=== PATIENT | male | born 1980 | race Caucasian/White ===

== ENCOUNTER 2023-06-11 09:17 | Emergency (ER) | payer MEDICARE, MEDICAID, SELFPAY ==
[2023-06-11] VITALS (8 sets, daily range): BP systolic 119–132; BP diastolic 65–91; PULSE 68–88; RESP 14–22; TEMP 36.7–36.8; O2SAT 94–99; BMI 49.5
--- NOTE | 2023-06-11 09:14 | ECG_ITS ---
APPROVED REPORT Exam: Resting ECG HR:78 bpm ECG Measurements Heart Rate 78 AXES LA 168 P 34 QRSd 97 QRS 33 QT 360 T 1 QTc 394 Conclusion SINUS RHYTHM NORMAL ECG UNCONFIRMED REPORT Electronically signed by : Alan Seth MD 06/12/2023 20:53:04
--- NOTE | 2023-06-11 09:30 | HMH.EDGENADL ---
Discharge Plan Disposition Patient Disposition: Home, Self-Care Prescriptions Prescriptions: New omeprazole magnesium 20 mg capsule,delayed release(DR/EC) 20 mg PO DAILY 28 Days Qty: 28 5RF Referrals Follow up/Referrals: Emile Ha MD [Staff Physician] - See instructions (needs PCP) Activity Restrictions/Add. Instructions Additional Instructions/Restrictions: Call your family doctor to establish care for this visit to the emergency department and schedule follow-up within 48 hours to ensure improvement. If you have any worsening of your condition or any other concerning signs or symptoms, return to the emergency department or your primary care doctor for further evaluation. Take Tylenol 1000 mg every 6 hours (4 times daily) and ibuprofen 400 mg every 6 hours (4 times daily) as needed with food and water to prevent GI upset and kidney damage. A referral for family doctor has been placed, you can call the information listed here to set up an appointment. Clinical Impressions Clinical Impression: Chest pain Qualifiers: Chest pain type: unspecified Qualified Code(s): R07.9 - Chest pain, unspecified Discharge ED Provider: Tay Willis General Adult HPI General Chief complaint: Chest Pain Stated complaint: chest pain Time Seen by Provider: 06/11/23 09:19 Mode of Arrival: Ambulatory Source of Information: Patient and Relative Limitations: No Limitations Description of Symptoms (Recalled from ER Triage Doc. by RN): 42 yo M presents to ED with c/o chest pain. pt reports pain ongoing for a few days. pt reports burning in middle of chest, radiating into the back. right upper arm pain associated. History of Present Illness HPI narrative: Is a 42-year-old male with history of hypertension, anxiety presenting with chest pain. Patient states that chest pain started 8/6 in the PM. Started in his epigastrium and radiates to his left shoulder. Feels like a pressure. No overt pain. Nausea without vomiting. Denies diaphoresis, shortness of breath, weakness, vision changes, left lower extremity symptoms, fevers or chills, cough, PND, orthopnea, or any other concerns. Has not taken anything for the pain. Tired to drink Gatorade, but that did not help. Tried to stay up all night thinking that would help, but it did not, so he comes to the ER for further evaluation. Related Data Previous Rx's Medication Instructions Recorded omeprazole magnesium 20 mg 20 mg PO DAILY 4 weeks #28 caps 06/11/23 capsule,delayed release Allergies Allergy/AdvReac Type Severity Reaction Status Date / Time vancomycin Allergy Verified 06/11/23 09:32 [facility] Disclaimer: The information contained in this section may have been updated after the patient was seen, as this information can be updated by other users. Social History Smoking Status: Never smoker alcohol intake: never current occupational status: unemployed Travel in the last 8 weeks: None ROS Obtained: Yes All systems reviewed & no additional complaints except as documented Physical Exam General General appearance: alert, in no apparent distress, anxious, obese and other ( ) Head Head exam: atraumatic and normocephalic Eye Eye exam: Present normal appearance, PERRL and EOMI ENT ENT exam: Present mucous membranes moist Neck Neck exam: Present normal inspection, full ROM and trachea midline Respiratory Respiratory exam: Present normal lung sounds bilaterally; Absent respiratory distress, wheezes, stridor, accessory muscle use or prolonged expiratory phase Cardiovascular Cardiovascular exam: Present regular rate and normal rhythm Abdominal Exam Abdominal exam: Present soft; Absent distention, tenderness, guarding, rebound, rigidity or normal bowel sounds Extremities Exam Extremities exam: Absent edema Neurological Exam Neurological exam: Present alert, oriented X3, CN II-XII intact and normal gait; Absent motor sensory deficit Skin Skin exam: Present warm and
[2023-06-11 09:32] LABS: Basophils # 0.1 K/mm3 (0-0.2); Basophils % 0.7 % (0.1-2.0); Eosinophils # 0.1 K/mm3 (0.0-0.4); Eosinophils % 1.1 % (0.1-12.0); Hematocrit 49.2 % (42.0-52.0); Hemoglobin 15.9 g/dL (14.1-18.0); Lymphocytes # 1.3 K/mm3 (0.7-4.5); Lymphocytes % 17.4 % (10-50); Mean Corpuscular HGB Conc 32.4 g/dL (31.8-35.4); Mean Corpuscular Hemoglobin 30.6 pg (27.0-31.2); Mean Corpuscular Volume 94.4 fl (80-94); Monocytes # 0.4 K/mm3 (0.1-1.0); Monocytes % 5.5 % (1.7-9.3); Neutrophils # 5.6 K/mm3 (1.8-7.8); Neutrophils % 75.3 % (37.0-80.0); Platelet Count 213 K/mm3 (142-424); Red Blood Count 5.21 M/mm3 (4.60-6.20); Red Cell Distribution Width 12.9 % (11.5-17.5); White Blood Count 7.5 K/mm3 (4.8-10.8)
--- NOTE | 2023-06-11 09:33 | XR_ITS ---
FINAL REPORT CLINICAL HISTORY: CP, SOA FINDINGS: SINGLE-VIEW CHEST The heart size is normal. The mediastinum is normal. The lungs are clear. There is no pneumothorax. IMPRESSION: No acute cardiopulmonary process. Reviewed, Interpreted and Dictated by Hernan Marte III, MD Transcribed by Dorothy Glaser Authenticated and [facility]
[2023-06-11 09:52] LABS: Alanine Aminotransferase 43 U/L (12-78); Albumin Level 4.5 g/dl (3.5-5.0); Albumin/Globulin Ratio 1.5 (1.1-1.8); Alkaline Phosphatase 102 U/L (38-126); Anion Gap 12.8 mEq/L (5-15); Aspartate Amino Transferase 38 U/L (17-59); Bilirubin,Total 1.1 mg/dl (0.2-1.3); Blood Urea Nitrogen 13 mg/dl (9-20); Calcium 8.6 mg/dl (8.4-10.2); Carbon Dioxide 25 mmol/L (22.0-30.0); Chloride 104 mmol/L (98-107); Creatinine Clearance Estimated 108 mL/min (50-200); Estimated Glomerular Filt Rate 92 ml/min (>60); GFR (African American) 111 ML/MIN (>60); Globulin 3.1 g/dL (1.3-3.2); Glucose 115 mg/dl (74-100); Potassium 3.8 mmoL/L (3.5-5.1); Sodium 138 mmol/L (136-145); Total Protein,Serum 7.6 g/dl (6.3-8.2)
[2023-06-11 10:08] LABS: Cholesterol 187 mg/dl (140-200); HDL Cholesterol 31 mg/dl (40-60); Lipase 261 U/L (23-300); Triglycerides 97 mg/dl (30-150); VLDL Cholesterol 19 mg/dL (0-40)
[2023-06-11 10:09] LABS: NT Pro Brain Natriuretic Pep. 25.2 pg/mL (0-125)
[2023-06-11 10:11] LABS: Hemoglobin A1C 5.2 % (4.0-6.0); Troponin I < 0.01 ng/ml (0.00-0.034)
--- NOTE | 2023-06-11 11:10 | PC.NURSE ---
rounded on pt no needs updated on status of care, aunts at bs
--- NOTE | 2023-06-11 12:58 | PC.NURSE ---
call made to lab for update on troponin results, approx 15 mins
[2023-06-11 13:16] LABS: Troponin I < 0.01 ng/ml (0.00-0.034)
== END 2023-06-11 13:37 | disposition home or self-care (01) ==
PROVIDERS: Emergency Provider Emergency Medicine
DX: R07.9 Chest pain, unspecified (principal); M79.621 Pain in right upper arm; M54.9 Dorsalgia, unspecified; I10 Essential (primary) hypertension
CPT/HCPCS: 71045; 80053; 80061; 83036; 83690; 83880; 84484; 85025; 93005; 96374; 99285

== ENCOUNTER 2024-09-10 05:16 | Emergency (ER) | payer MEDICARE, MEDICAID, SELFPAY ==
--- NOTE | 2024-09-10 05:18 | XR_ITS ---
PROCEDURE INFORMATION: Exam: XR Complete Acute Abdomen Series Including Chest Exam date and time: 09/10/2024 5:23 AM Age: 43 years old Clinical indication: Abdominal pain; Additional info: Llq abd pain constipation TECHNIQUE: Imaging protocol: Radiologic exam. Complete acute abdomen series, including 2 or more views of the abdomen and a single view chest. COMPARISON: CR XR CHEST PORTABLE 06/11/2023 9:37 AM FINDINGS: Lungs: Normal. No consolidation. Pleural spaces: Normal. No pleural effusions. No pneumothorax. Heart/Mediastinum: Normal. No cardiomegaly. Gastrointestinal tract: Paucity of small bowel gas. Oyvr-[id number] proximal colonic stool burden. Intraperitoneal space: Normal. No free air. Bones/joints: Minimal levoconvex lumbar scoliosis. Scattered degenerative change of the visualized osseous structures. Soft tissues: Normal. IMPRESSION: 1. Paucity of small bowel gas which may be secondary to enteritis. Correlate clinically. 2. No definitive evidence of intestinal obstruction on this examination. 3. Residual findings as above.
[2024-09-10 05:21] VITALS: BP 145/80; PULSE 61; RESP 20; TEMP 37.1; O2SAT 98; BMI 47.3
--- NOTE | 2024-09-10 05:27 | ED_ITS ---
Discharge Plan Disposition Patient Disposition: Home, Self-Care Condition: Good Prescriptions Prescriptions: New polyethylene glycol 3350 [Miralax] 17 gram/dose powder 17 g PO DAILY 4 Days Qty: 68 0RF No Action phentermine [Adipex-P] 37.5 mg tablet 37.5 mg PO DAILY Qty: 30 3RF Rx Instructions: must administer 30 minutes before or 1-2 hours after breakfast omeprazole magnesium 20 mg capsule,delayed release(DR/EC) 20 mg PO DAILY 28 Days Qty: 28 5RF topiramate [Topamax] 25 mg tablet 25 mg PO DAILY Qty: 30 0RF Referrals Follow up/Referrals: Konrad Murphy MD [Staff Physician] - See instructions (trace hematuria in ER, pt reports 4 years of stable scrotal swelling) Activity Restrictions/Add. Instructions Additional Instructions/Restrictions: You were evaluated in the ER and are appropriate for discharge at this time. Take Tylenol, ibuprofen if needed for pain. Take the prescribed MiraLAX if needed for constipation. Stop taking this medication if you get diarrhea. Make an appointment with your primary care doctor for reevaluation in a few days. Also follow-up with urology for the very small amount of blood that was in your urine. You have been referred to Dr. Murphy for this reason. Return to the ER with new, worsening, or otherwise concerning symptoms Clinical Impressions Clinical Impression: Abdominal pain, left lower quadrant, Hematuria Instructions Patient Instructions: DI for Acute Abdominal Pain Print Language Print Language: Divehi Discharge ED Provider: Efren Armstrong General Adult HPI General Chief complaint: Abdominal Pain Stated complaint: left lower abdominal pain, into groin area Time Seen by Provider: 09/10/24 05:17 History of Present Illness HPI narrative: 43-year-old male presents to the ER for complaints of left lower quadrant abdominal pain. Patient reports the last 2 to 3 hours he has had cramping left lower quadrant abdominal pain. He has not had any nausea, vomiting, diarrhea. He does state he has been more constipated recently and had to strain to have a bowel movement which did not particularly relieve his pain. Patient denies any radiation of the pain, he has not had fever, chills, chest pain, difficulty breathing, dysuria, hematuria, or other associated symptoms. I specifically asked the patient if he was having any testicular pain or radiation into the groin because EMS reported he had complained of that, and he reports he has not had any symptoms like that. He does state his testicles seemed slightly swollen for the last 4 years but admits that he has been putting on weight in that time as well. No acute changes. Patient states he thinks he might be constipated. He states when he first called EMS his pain was an 8, it is down to a 6 and continues to improve. He has not had any pain in the back. No other associated symptoms. He has been ambulatory both with EMS in the ER. He walked from his house to the ambulance and ambulated independently from stretcher to stretcher in the ER. Related Data Previous Rx's ?Medication ?Instructions ?Recorded omeprazole magnesium 20 mg 20 mg PO DAILY 4 weeks #28 caps 11/27/23 capsule,delayed release phentermine 37.5 mg tablet 37.5 mg PO DAILY #30 tabs 06/02/24 (Adipex-P) topiramate 25 mg tablet (Topamax) 25 mg PO DAILY #30 tabs 07/18/24 polyethylene glycol 3350 17 17 g PO DAILY 4 days #68 grams 09/10/24 gram/dose oral powder (Miralax) Allergies Allergy/AdvReac Type Severity Reaction Status Date / Time vancomycin Allergy Verified 06/02/24 09:26 [facility] Disclaimer: The information contained in this section may have been updated after the patient was seen, as this information can be updated by other users. Medical History Abscess of neck Acid reflux Family History Father Coronary artery disease Mother Coronary artery disease Lupus Cancer Social History Smoking Status: Never smoker second hand exposure: Yes alcohol intake: never substance use type: denies use current occupational status: unemployed Travel in the last 8 weeks: None household members: family housing: apartment marital status: single Other Medical History Have you received the Pneumonia Vaccine: No ROS Obtained: Yes Systems reviewed as appropriate & no additional complaints except as documented ROS per HPI Physical Exam General General appearance: alert, in no apparent distress and obese Head Head exam: atraumatic and normocephalic Eye Eye exam: Present PERRL and EOMI ENT ENT exam: Present mucous membranes moist Neck Neck exam: Present normal inspection and full ROM Chest Chest inspection: Present symmetric chest wall rise Respiratory Respiratory exam: Present normal lung sounds bilaterally; Absent respiratory distress, wheezes or stridor Cardiovascular Cardiovascular exam: Present regular rate and normal rhythm Abdominal Exam Abdominal exam: Present soft; Absent distention, tenderness, guarding or rebound Comment: Patient reports left-sided abdominal pain but has no tenderness to palpation, no rebound or guarding Extremities Exam Extremities exam: Present full ROM; Absent edema Back Exam Back exam: Absent tenderness, CVA tenderness (R) or CVA tenderness (L) Neurological Exam Neurological exam: Present alert and oriented X3; Absent motor sensory deficit Psychiatric Psychiatric exam: Present normal affect and normal mood Skin Skin exam: Present warm and dry Medical Decision Making Medical Records Medical records reviewed: Yes I reviewed the patient's medical records. Screening: Per USPSTF and CDC recommendations, given the prevalence of disease in our region, it is our hospital?s policy to screen for HIV and viral Hepatitis for all patients aged 18 and over and those with ongoing risk factors. MR Comment: Patient was last evaluated by primary care in May. I reviewed this progress note which demonstrates patient was dealing with obesity and is prescribed phentermine and Topamax. Filipe Inquiry Pt receiving controlled substance: No Vital Signs: 09/10/24 05:21 09/10/24 05:21 Temperature 98.7 F 98.7 F Temperature Source Oral Oral Pulse Rate 61 Pulse Rate [Left Apical] 61 Respiratory Rate 20 20 Blood Pressure 145/80 H Blood Pressure [Right Arm] 145/80 H Blood Pressure Mean [Right Arm] 101 Blood Pressure Position [Right Arm] Supine 02 Sat by Pulse Oximetry 98 98 Oxygen Delivery Method Room Air Room Air Lab Data Lab Results 09/10/24 05:33: WBC 8.3, RBC 5.04, Hgb 16.3, Hct 47.3, MCV 93.8, MCH 32.4 H, MCHC 34.6, RDW 13.6, Plt Count 193, MPV 8.0, Neut % (Auto) 84.2 H, Lymph % (Auto) 9.4 L, [place] % (Auto) 5.1, Eos % (Auto) 0.7, Baso % (Auto) 0.7, Neut # (Auto) 7.0, Lymph # (Auto) 0.8, [place] # (Auto) 0.4, Eos # (Auto) 0.1, Baso # (Auto) 0.1, PT 11.7, INR 1.05, Sodium 139, Potassium 3.8, Chloride 108 H, Carbon Dioxide 22, Anion Gap 12.8, BUN 15, Creatinine 1.10, Estimated Creat Clear 88, Estimated GFR 72, Est GFR ( Amer) 88, Glucose 99, Lactate 1.1, Calcium 9.1, Total Bilirubin 1.5 H, AST 30, ALT 37, Alkaline Phosphatase 73, Total Protein 7.3, Albumin 4.4, Globulin 2.9, Albumin/Globulin Ratio 1.5, Lipase 213, HIV 1&2 Antibody Rapid Nonreactive 09/10/24 06:08: Urine Color Yellow, Urine Appearance Clear, Urine pH 6.5, Ur Specific [place] 1.015, Urine Protein Negative, Urine Glucose (UA) Negative, Urine Ketones Trace, Urine Blood 3+ A, Urine Nitrate Negative, Urine Bilirubin Negative, Urine Urobilinogen 1.0, Ur Leukocyte Esterase Negative, Urine RBC 3-5, Urine WBC None, Ur Squamous Epith Cells Occasional, Urine Bacteria None 09/10/24 05:33 09/10/24 05:33 Orders (Tests/Meds): ED MEDICATIONS Discontinued Medications Generic Name Dose Route Start Last Admin Trade Name Freq PRN Reason Stop Dose Admin Ketorolac Tromethamine 15 mg 09/10/24 05:34 09/10/24 05:45 Ketorolac 30mg/Ml Vial IV 09/10/24 05:35 15 mg ONCE ONE Administration ORDERS Category Date Time Status XR acute abdomen series Stat Exams 09/10/24 05:18 Taken Complete Blood Count Auto Diff Stat Lab 09/10/24 05:33 Completed Comprehensive Metabolic Panel Stat Lab 09/10/24 05:33 Completed HIV (1&2) Antibody Rapid Stat Lab 09/10/24 05:33 Completed Hep C Ab with Reflex to RNA Stat Lab 09/10/24 05:33 Received Lactic Acid Stat Lab 09/10/24 05:33 Completed Lipase Stat Lab 09/10/24 05:33 Completed Prothrombin Time INR Stat Lab 09/10/24 05:33 Completed Urinalysis and Microscopic Stat Lab 09/10/24 06:08 Completed Medical Decision Narrative: In summary, this 43-year-old male with a history of obesity presents to the emergency department today with left lower quadrant abdominal pain that has been improving since the time he called EMS. On initial evaluation patient is hemodynamically stable, afebrile, well-appearing, ambulatory, he has no tenderness to palpation of the abdomen, no CVA tenderness, remainder of exam benign. Differential diagnosis includes but is not limited to constipation, viral syndrome, considered lactic acidosis, pancreatitis, I considered the possibility of diverticulitis but have low suspicion for this since patient is not having diarrhea, considered possibility of kidney stone but patient has no CVA tenderness or tenderness of the back, no pain radiating to the groin. Patient had described testicular swelling but this has been going on for more than 4 years and has been reportedly unchanged and asymptomatic so I have no concern regarding this at this time. He also is extremely comfortable on exam and denies any pain in the testicles. Based on these concerns, I ordered serum labs, abdominal x-ray. I considered more extensive workup but patient is extremely comfortable, normal vitals, and abdomen is benign. He has no tenderness even with the deepest palpation on exam. I am very reassured by his exam. Patient received Toradol for treatment. Labs personally reviewed demonstrate no leukocytosis, no anemia, normal platelets, PT/INR normal, CMP nonactionable, trace hyperbilirubinemia is nonspecific and nonactionable, can be followed up outpatient. Lipase and lactic normal. Urine with trace hematuria but no findings of infection. Patient referred to urology for outpatient follow-up. X-ray personally interpreted does not demonstrate acute intra-abdominal pathology, see radiology read for final interpretation. On reassessment patient has had complete resolution of symptoms. Patient is appropriate for discharge at this time. MiraLAX prescribed for management of intermittent constipation. Patient and family at bedside were given instructions on symptomatic management, follow up instructions, and return precautions for the emergency department. Patient indicated understanding and was discharged in stable condition. Critical Care Critical Care Time Critical Care Time: No
[2024-09-10 05:45] LABS: Basophils # 0.1 K/mm3 (0-0.2); Basophils % 0.7 % (0.1-2.0); Eosinophils # 0.1 K/mm3 (0.0-0.4); Eosinophils % 0.7 % (0.1-12.0); Hematocrit 47.3 % (42.0-52.0); Hemoglobin 16.3 g/dL (14.1-18.0); Lymphocytes # 0.8 K/mm3 (0.7-4.5); Lymphocytes % 9.4 % (10-50); Mean Corpuscular HGB Conc 34.6 g/dL (31.8-35.4); Mean Corpuscular Hemoglobin 32.4 pg (27.0-31.2); Mean Corpuscular Volume 93.8 fl (80-94); Monocytes # 0.4 K/mm3 (0.1-1.0); Monocytes % 5.1 % (1.7-9.3); Neutrophils % 84.2 % (37.0-80.0); Platelet Count 193 K/mm3 (142-424); Red Blood Count 5.04 M/mm3 (4.60-6.20); Red Cell Distribution Width 13.6 % (11.5-17.5); White Blood Count 8.3 K/mm3 (4.8-10.8)
[2024-09-10] MEDS: KETOROLAC 30MG/ML VIAL 15 MG IV (05:45)
[2024-09-10 05:55] LABS: Alanine Aminotransferase 37 U/L (12-78); Albumin Level 4.4 g/dl (3.5-5.0); Albumin/Globulin Ratio 1.5 (1.1-1.8); Alkaline Phosphatase 73 U/L (38-126); Anion Gap 12.8 mEq/L (5-15); Aspartate Amino Transferase 30 U/L (17-59); Bilirubin,Total 1.5 mg/dl (0.2-1.3); Blood Urea Nitrogen 15 mg/dl (9-20); Calcium 9.1 mg/dl (8.4-10.2); Carbon Dioxide 22 mmol/L (22.0-30.0); Chloride 108 mmol/L (98-107); Creatinine Clearance Estimated 88 mL/min (50-200); Estimated Glomerular Filt Rate 72 ml/min (>60); GFR (African American) 88 ML/MIN (>60); Globulin 2.9 g/dL (1.3-3.2); Glucose 99 mg/dl (74-100); INR 1.05 (0.9-1.1); Lactic Acid 1.1 mmol/L (0.7-2.1); Potassium 3.8 mmoL/L (3.5-5.1); Prothrombin Time 11.7 seconds (10.1-12.5); Sodium 139 mmol/L (136-145); Total Protein,Serum 7.3 g/dl (6.3-8.2)
[2024-09-10 06:00] LABS: Lipase 213 U/L (23-300)
[2024-09-10 06:21] LABS: HIV (1&2) Antibody Rapid NONREACTIVE (NONREACTIVE)
[2024-09-10 06:24] LABS: Microscopic, Urine URINE MICROSCOPIC (MICROSCOPIC)
[2024-09-10 06:26] LABS: Appearance,Urine CLEAR (Clear); Bilirubin,Urine Negative (Negative); Blood, Urine 3+ (Negative); Color,Urine YELLOW (Yellow); Glucose,Urine (UA) Negative (Negative); Ketones,Urine TRACE (Negative); Leukocyte Esterase,Urine Negative (Negative); Nitrate,Urine Negative (Negative); PH,Urine 6.5 (5.0-8.5); Protein,Urine Negative (Negative); Specific Gravity, Urine 1.015 (1.005-1.030)
[2024-09-10 06:44] LABS: Squamous Epithelial Cell,Urine Occasional #/hpf (0-5)
[2024-09-10 06:47] VITALS: BP 131/87; PULSE 72; RESP 18; TEMP 36.6; O2SAT 97
[2024-09-11 07:20] LABS: HCV Ab Non Reactive (Non Reactive)
== END 2024-09-10 06:56 | disposition home or self-care (01) ==
PROVIDERS: Emergency Provider Emergency Medicine; PCP Family Medicine
DX: R10.32 Left lower quadrant pain (principal); R31.9 Hematuria, unspecified; K59.00 Constipation, unspecified; R63.5 Abnormal weight gain; N49.2 Inflammatory disorders of scrotum
CPT/HCPCS: 74021; 80053; 81001; 83605; 83690; 85025; 85610; 86803; 87389; 96374; 99283; J1885